=== PATIENT | female | born 1995 | race African-American/Black ===

== ENCOUNTER 2016-07-25 19:14 | Emergency (ER) | payer MEDICAID, OTHER ==
[~2016-07-25] VITALS: Ht 167.6 cm; Wt 90.5 kg
[~2016-07-25 19:14] MED LIST: LORT5TAB PO; NORE1TAB58 PO; PROM25TA5 PO; Z.0.NO CURRENT MEDS
[2016-07-25 19:16] VITALS: BP 137/79; PULSE 98; RESP 16; TEMP 98
[2016-07-26 00:45] VITALS: BP 124/70; PULSE 90; RESP 16; TEMP 98
[2016-07-26 02:13] VITALS: BP 124/70; PULSE 90; RESP 16; TEMP 98; O2SAT 96
[2016-07-26] MEDS ORDERED: SODIUM CHLOR 0.9% 1000 ML INJ 1,000 ML IV ONE (04:15)
[2016-07-26] MEDS ORDERED: METOCLOPRAMIDE INJ 10 MG in SODIUM CHLORIDE 0.9% INJ 50 ML IV ONE (04:15)
[2016-07-26 04:43] VITALS: BP 130/70; PULSE 87; RESP 16; TEMP 98.7; O2SAT 100
[2016-07-26 05:11] LABS: AUTOMATED NEUTROPHIL # 4.2 TH/MM3 (1.8-7.7); BASOPHIL % 0.5 % (0.0-2.0); EOSINOPHIL # 0.2 TH/MM3 (0-0.4); EOSINOPHIL % 2.1 % (0.0-4.0); HEMATOCRIT 36.4 % (35.0-46.0); HEMO FLAGS DIFF FINAL; LYMPH % 27.8 % (9.0-44.0); MEAN CELL VOLUME 86.3 FL (80.0-100.0); MEAN CORPUSCULAR HGB CONC 34.8 % (32.0-36.0); MONO % 11.9 % (0.0-8.0); NEUT % 57.7 % (16.0-70.0); PLATELET COUNT 358 TH/MM3 (150-450); RED BLOOD COUNT 4.23 MIL/MM3 (4.00-5.30); RED CELL DISTRIBUTION WIDTH 12.6 % (11.6-17.2); WHITE BLOOD COUNT 7.4 TH/MM3 (4.0-11.0)
[2016-07-26 05:13] LABS: BACTERIA, URINE RARE /hpf; BLOOD, URINE NEG (NEG); COMMENT (UR) CULT NOT INDICATED; CULTURE IF INDICATED CULT NOT INDICATED; GLUCOSE,URINE NEG (NEG); KETONE, URINE 150 mg/dL (NEG); MUCUS URINE MANY /lpf (OCC); NITRITE,URINE NEG (NEG); SQUAMOUS EPITHELIAL CELL URINE 5 /hpf (0-5); URINE COLOR YELLOW (YELLW/STRAW)
[2016-07-26 05:29] LABS: ALKALINE PHOSPHATASE 102 U/L (45-117); ALT (GPT) 36 U/L (9-42); ANION GAP 10 MEQ/L (5-15); AST (GOT) 30 U/L (16-38); BICARBONATE 23.6 MEQ/L (21.0-32.0); BLOOD UREA NITROGEN 9 MG/DL (7-18); CHLORIDE 103 MEQ/L (98-107); GLOMERULAR FILTRATION RATE 129 ML/MIN (>89); SODIUM (NA) 137 MEQ/L (136-145); TOTAL BILIRUBIN ADULT 0.9 MG/DL (0.2-1.0)
[2016-07-26 05:34] LABS: POTASSIUM 4.2 MEQ/L (3.5-5.1)
[2016-07-26] MEDS ORDERED: MACR100C2 PO (06:14)
[2016-07-26] MEDS ORDERED: REGL10TA5 PO (06:14)
--- NOTE | 2016-07-26 06:14 | PD ---
HPI Chief Complaint: GI Complaint Time Seen by Provider: 04:09 Travel History International Travel<30 days: No Contact w/Intl Traveler<30days: No Traveled to known affect area: No History of Present Illness HPI Patient is a 20 year old female, approximately 8 weeks , who comes in complaining of nausea and vomiting for the past 5 days. She says today she has not been able to keep any food or drink down. She says she has occasional cramping of her lower abdomen. She denies any leakage of fluids or vaginal bleeding. This is her first . She denies any dysuria. [facility] Past Medical History Diminished Hearing: No Immunizations Current: Yes Tetanus Vaccination: Unknown Influenza Vaccination: No ?: LMP: 8 weeks Ovarian Cysts: Yes (HAD ONE PREVIOUSLY THAT DISSOLVED IN SAME AREA) Past Surgical History Surgical History: No Previous Surgery Social History Alcohol Use: No Tobacco Use: No Substance Use: No Allergies-Medications (Allergen,Severity, Reaction): Coded Allergies: No Known Allergies (Verified , 07/25/16) Reported Meds & Prescriptions Reported Meds & Active Scripts Active Macrobid (Nitrofurantoin Monoh/Nitrofur Macro) 100 Mg Cap 100 Mg PO BID 7 Days Reglan (Metoclopramide HCl) 10 Mg Tab 10 Mg PO QID Review of Systems Except as stated in HPI: all other systems reviewed are Neg General / Constitutional: No: Fever, Chills HENT: No: Headaches Cardiovascular: No: Chest Pain or Discomfort Respiratory: No: Shortness of Breath Gastrointestinal: Positive: Nausea, Vomiting, No: Abdominal Pain Genitourinary: No: Urgency, Frequency, Dysuria, Discharge, Vaginal Bleeding Skin: No Rash, No Change in Pigmentation Neurologic: No: Weakness, Dizziness Physical Exam Narrative GENERAL: Awake and alert, in no acute distress. SKIN: Focused skin assessment warm/dry. HEAD: Atraumatic. Normocephalic. EYES: Pupils equal and round. No scleral icterus. ENT: Mucous membranes pink and moist. NECK: Trachea midline. No JVD. CARDIOVASCULAR: Regular rate and rhythm. No murmur appreciated. RESPIRATORY: No accessory muscle use. Clear to auscultation. Breath sounds equal bilaterally. GASTROINTESTINAL: Abdomen soft, non-tender, nondistended. No CVA tenderness. MUSCULOSKELETAL: No obvious deformities. No clubbing. No cyanosis. No edema. NEUROLOGICAL: Awake and alert. No obvious cranial nerve deficits. Motor grossly within normal limits. Normal speech. PSYCHIATRIC: Appropriate mood and affect; insight and judgment normal. Data Data Last Documented VS Vital Signs Date Time Temp Pulse Resp B/P Pulse Ox O2 Delivery O2 Flow Rate FiO2 07/26/16 06:44 98.6 88 16 98 07/26/16 04:43 130/70 Room Air Orders Ed Urine Pregnancytest Poc (07/26/16 04:13) Ed Poc Ultrasound (07/26/16 ) Complete Blood Count With Diff (07/26/16 04:13) Comprehensive Metabolic Panel (07/26/16 04:13) Urinalysis - C+S If Indicated (07/26/16 04:13) Sodium Chlor 0.9% 1000 Ml Inj (Ns 1000 M (07/26/16 04:15) Metoclopramide Inj (Reglan Inj) (07/26/16 04:15) Labs Laboratory Tests Test 07/26/16 05:05 White Blood Count 7.4 TH/MM3 Red Blood Count 4.23 MIL/MM3 Hemoglobin 12.7 GM/DL Hematocrit 36.4 % Mean Corpuscular Volume 86.3 FL Mean Corpuscular Hemoglobin 30.0 PG Mean Corpuscular Hemoglobin 34.8 % Concent Red Cell Distribution Width 12.6 % Platelet Count 358 TH/MM3 Mean Platelet Volume 7.8 FL Neutrophils (%) (Auto) 57.7 % Lymphocytes (%) (Auto) 27.8 % Monocytes (%) (Auto) 11.9 % Eosinophils (%) (Auto) 2.1 % Basophils (%) (Auto) 0.5 % Neutrophils # (Auto) 4.2 TH/MM3 Lymphocytes # (Auto) 2.0 TH/MM3 Monocytes # (Auto) 0.9 TH/MM3 Eosinophils # (Auto) 0.2 TH/MM3 Basophils # (Auto) 0.0 TH/MM3 CBC Comment DIFF FINAL Differential Comment Urine Color YELLOW Urine Turbidity HAZY Urine pH 6.0 Urine Specific [place] 1.034 Urine Protein 30 mg/dL Urine Glucose (UA) NEG mg/dL Urine Ketones 150 mg/dL Urine Occult Blood NEG Urine Nitrite NEG Urine Bilirubin NEG Urine Urobilinogen LESS THAN 2.0 MG/DL Urine Leukocyte Esterase NEG Urine RBC LESS THAN 1 /hpf Urine WBC 2 /hpf Urine Squamous Epithelial 5 /hpf Cells Urine Bacteria RARE /hpf Urine Mucus MANY /lpf Microscopic Urinalysis Comment CULT NOT INDICATED Sodium Level 137 MEQ/L Potassium Level 4.2 MEQ/L Chloride Level 103 MEQ/L Carbon Dioxide Level 23.6 MEQ/L Anion Gap 10 MEQ/L Blood Urea Nitrogen 9 MG/DL Creatinine 0.70 MG/DL Estimat Glomerular Filtration 129 ML/MIN Rate Random Glucose 76 MG/DL Calcium Level 9.2 MG/DL Total Bilirubin 0.9 MG/DL Aspartate Amino Transf 30 U/L (AST/SGOT) Alanine Aminotransferase 36 U/L (ALT/SGPT) Alkaline Phosphatase 102 U/L Total Protein 8.1 GM/DL Albumin 3.8 GM/DL [facility] Medical Decision Making Medical Screen Exam Complete: Yes Emergency Medical Condition: Yes Differential Diagnosis UTI vs pyelonephritis vs hyperemesis gravidarum Narrative Course Patient is a 20 year old female, 8 weeks , who comes in complaining of nausea and vomiting. Exam shows no abdominal tenderness. IV established, labs sent. Urine is positive for ketones and bacteria. Given IVF and Reglan. Bedside sono performed, confirms IUP with heartbeat. Patient feels better after medication. Able to drink without vomiting. Will be discharged with prescriptions for Reglan and Macrobid. Advised to follow up with her OB. Advised to return to the ED as needed for any worsening symptoms. Procedures Procedure Narrative Emergency Department Pelvic ultrasound was performed with patient consent. The curvilinear probe was used in the transverse and sagittal views within the suprapubic region revealing single intrauterine . heart rate was 152. [place]-rump length puts the at 7 weeks and 5 days. Diagnosis Primary Impression: Hyperemesis gravidarum Additional Impression: Bacteria in urine Patient Instructions: General Instructions, Hyperemesis Gravidarum (ED) Additional Instructions: Follow up with your OB. Return to the ED as needed for any worsening symptoms. Scripts Nitrofurantoin Monohydrate Macrocrystals (Macrobid)100 Mg [id number] Mg PO BID 7 Days Ref 0 Prov:Kemi Padilla MD 07/26/16 Metoclopramide (Reglan)10 Mg Tab10 Mg PO QID #12 TAB Ref 0 Prov:Kemi Padilla MD 07/26/16 Disposition: 01 DISCHARGE HOME Condition: Stable Kemi Padilla MD Jul 26, 2016 06:14
[2016-07-26 06:44] VITALS: TEMP 98.6
== END 2016-07-26 06:43 | disposition home or self-care (01) ==
LOC: NEPE 19:14
DX: O21.0 Mild hyperemesis gravidarum (principal); O23.91 Unspecified genitourinary tract infection in pregnancy, first trimester; Z3A.08 8 weeks gestation of pregnancy
CPT/HCPCS: 80053; 81001; 85025; 96374; 99284; J2765; J7030

== ENCOUNTER 2017-02-15 11:41 | Emergency (ER) | payer MEDICAID ==
[~2017-02-15 11:41] MED LIST changes: -LORT5TAB PO; +MACR100C2 PO; -NORE1TAB58 PO; -PROM25TA5 PO; +REGL10TA5 PO; -Z.0.NO CURRENT MEDS
[2017-02-15 11:54] VITALS: RESP 18
[2017-02-15 12:06] VITALS: BP 120/70; PULSE 112
[2017-02-15 12:15] VITALS: TEMP 98.6
--- NOTE | 2017-02-15 13:19 | PD ---
HPI Date Seen: Feb 15, 2017 Time Seen: 12:40 Travel History International Travel<30 Days: No Contact w/Intl Traveler<30Days: No History of Present Illness HPI 21 yo at 36/5 weeks gestation presenting with sharp/stabbing lower abdominal pain localized to RLQ. Intermittent pain, not severe. A/w back pain. No fever/chills, dysuria, diarrhea. No vaginal bleeding or leakage of fluid. Endorses movement. History Past Medical History Medical History: Denies Significant Hx Obstetric History Obstetric History Past Surgical History Surgical History: No Previous Surgery Family History Family History: Negative Social History Alcohol Use: No Tobacco Use: No Substance Abuse: No Allergies-Medications (Allergen,Severity, Reaction): Coded Allergies: No Known Allergies (Verified , 07/25/16) Home Meds Active Scripts Nitrofurantoin Monohydrate Macrocrystals (Macrobid) 100 Mg Cap, 100 MG PO BID for Infection for 7 Days, CAP 0 Refills Prov:Kemi Padilla MD 07/26/16 Metoclopramide (Reglan) 10 Mg Tab, 10 MG PO QID for Nausea, #12 TAB 0 Refills Prov:Kemi Padilla MD 07/26/16 Review of Systems Except as stated in HPI: all other systems reviewed are Neg Physical Exam Vital Signs Date Time Temp Pulse Resp B/P (MAP) Pulse Ox O2 Delivery O2 Flow Rate FiO2 02/15/17 12:15 98.6 02/15/17 12:06 112 120/70 (87) 02/15/17 11:54 18 Narrative GENERAL: Well-nourished, well-developed patient. SKIN: Warm and dry. HEAD: Normocephalic and atraumatic. EYES: No scleral icterus. No injection or drainage. ENT: No nasal drainage noted. Mucous membranes pink. Airway patent. NECK: Supple, trachea midline. No JVD. CARDIOVASCULAR: Regular rate and rhythm without murmurs, gallops, or rubs. RESPIRATORY: Breath sounds equal bilaterally. No accessory muscle use ABDOMEN/GI: Abdomen soft, non-tender, bowel sounds present, no rebound, no guarding GENITOURINARY: External Genitalia: intact and normal in appearance Cervix: posterior Dilatation: 0-1 cm Effacement: 30-40% Station: -3 Presentation: Vertex Membranes: intact Uterine Contractions: Regular every 5 minutes FHT's: Category: 1 Baseline: 130 Reactive: Y Variability: moderate Decels: N EXTREMITIES: No cyanosis or edema. BACK: Nontender without obvious deformity NEUROLOGICAL: Awake and alert. Motor and sensory grossly within normal limits. Normal speech. Data Data Vital Signs Reviewed: Yes Orders Orders Vital Signs (Adult) .ON ADMISSION (02/15/17 11:52) ^ Labor Status (02/15/17 11:52) ^ Non Stress Test (02/15/17 11:52) ^ Hydration (02/15/17 11:52) Us Abdomen Lower Limited (02/15/17 ) Group B Strep: Negative MDM Medical Record Reviewed: Yes Narrative Course / MDM 21 yo at 36/5 weeks with lower abdominal pain #1 IUP - cat 1 tracing, reassuring' #2 Abdominal pain - likely [place] versus early labor. Cervix closed and high. Urine dipstick negative for nitrite and leuk esterase. No evidence of appendicitis on ultrasound and exam not suggestive. Counselled on active labor signs. Advised to keep appts with Dr. Sharif as scheduled. dw Dr. Perez Diagnosis Diagnosis: Primary Impression: [place] contractions Disposition: DISCHARGE HOME Condition: Good Andrew Bustos MD R2 Feb 15, 2017 13:19
--- NOTE | 2017-02-15 14:05 | RADRPT ---
EXAM DATE/TIME: 02/15/2017 12:49 [facility] COMPARISON: CT ABDOMEN & PELVIS W CONTRAST, April 01, 2009, 19:13. INDICATIONS : Right lower quadrant pain, appendicitis. MEDICAL HISTORY : 37 weeks . SURGICAL HISTORY : Cyst removed from finger. ENCOUNTER: Initial ACUITY: 1 day PAIN SCORE: 3/10 LOCATION: Right lower quadrant AREA EVALUATED: Lower quadrants. FINDINGS: Imaging of the abdomen and pelvis was performed to evaluate for ascites for possible paracentesis. CONCLUSION: I do not see appendicitis by ultrasound. Appendix is noted to be deep in the pelvis on CT scan from 04/01/2009. Cricket Lopez MD FACR on February 15, 2017 at 13:07 Board Certified Radiologist. This report was verified electronically.
== END 2017-02-15 13:52 | disposition home or self-care (01) ==
LOC: HOBED 11:41
DX: O47.03 False labor before 37 completed weeks of gestation, third trimester (principal); R10.31 Right lower quadrant pain; Z3A.36 36 weeks gestation of pregnancy
CPT/HCPCS: 59025; 76705

== ENCOUNTER 2017-03-03 12:24 | Emergency (ER) | payer MEDICAID ==
[2017-03-03] MEDS ORDERED: ONDANSETRON ODT 4 MG TAB PO ONE (14:00)
--- NOTE | 2017-03-03 15:19 | PD ---
HPI Chief Complaint 39 weeks / nausea and vomiting 2 days Back pain Date Seen: Mar 03, 2017 Time Seen: 15:00 Travel History International Travel<30 Days: No Contact w/Intl Traveler<30Days: No Known Affected Area: No History of Present Illness HPI 21 yo at 39 weeks Pt presents with 2 days h/o nausea and vomiting. Had similar episode 2 weeks ago, and was seen at ED here and sent home. Symptoms resolved spontaneously.No headache or vision changes. Active movements. No vaginal bleeding. pt was seen in the office yesterday PM, and was 2cm dilated . Weeks Gestation: 39 Para: 0 : 1 History Past Medical History Medical History: Denies Significant Hx Past Surgical History Surgical History: No Previous Surgery Family History Family History: Negative Social History Alcohol Use: No Tobacco Use: No Substance Abuse: No Allergies-Medications (Allergen,Severity, Reaction): Coded Allergies: No Known Allergies (Verified Allergy, Unknown, 03/03/17) Home Meds Active Scripts Nitrofurantoin Monohydrate Macrocrystals (Macrobid) 100 Mg Cap, 100 MG PO BID for Infection for 7 Days, CAP 0 Refills Prov:Kemi Padilla MD 07/26/16 Metoclopramide (Reglan) 10 Mg Tab, 10 MG PO QID for Nausea, #12 TAB 0 Refills Prov:Kemi Padilla MD 07/26/16 Review of Systems Except as stated in HPI: all other systems reviewed are Neg Physical Exam Narrative GENERAL: Well-nourished, well-developed patient. SKIN: Warm and dry. HEAD: Normocephalic and atraumatic. EYES: No scleral icterus. No injection or drainage. ENT: No nasal drainage noted. Mucous membranes pink. Airway patent. NECK: Supple, trachea midline. No JVD. CARDIOVASCULAR: Regular rate and rhythm without murmurs, gallops, or rubs. RESPIRATORY: Breath sounds equal bilaterally. No accessory muscle use. BREASTS: Bilateral exam showed no masses , no retractions, no nipple discharge. ABDOMEN/GI: Abdomen soft, non-tender, bowel sounds present, no rebound, no guarding Gravid to [39] weeks size Fundal Height: [-] GENITOURINARY: External Genitalia: intact and normal in appearance BUS glands: [-] Cervix: [-] Dilatation: [-] Effacement: [-] Station: [-] Presentation: [-] Membranes: [intact or ruptured] Uterine Contractions: [occasional] FHT's: Category: [cat 1] Baseline: [130s] Variability: [moderate] Decels: [none] EXTREMITIES: No cyanosis or edema. BACK: Nontender without obvious deformity. No CVA tenderness. NEUROLOGICAL: Awake and alert. Motor and sensory grossly within normal limits. Five out of 5 muscle strength in all muscle groups. Normal speech. Data Data Vital Signs Reviewed: Yes Orders Orders Ondansetron Odt (Zofran Odt) (03/03/17 14:00) MDM Plan Cervix unchanged from office visit. Nausea and vomiting improved with Zofran Discharge home on ODT Zofran.. Diagnosis Diagnosis: Primary Impression: 39 weeks gestation of Additional Impressions: Nausea & vomiting Back pain affecting Disposition: 01 DISCHARGE HOME Condition: Stable Contreras Spencer MD Mar 03, 2017 15:19
--- NOTE | 2017-03-03 16:02 | PD ---
HPI Chief Complaint nausea and vomiting 2 days back pain Date Seen: Mar 03, 2017 Time Seen: 13:00 Travel History International Travel<30 Days: No Contact w/Intl Traveler<30Days: No Known Affected Area: No History of Present Illness HPI Pt is a 21 [address] at [address] [facility] 03-10-2017, care at [facility]. Reports nausea and vomiting since yesterday morning. had similar episode 2 weeks and was suzanne here and discharged home. Active movements, no vaginal bleeding. History Past Medical History Medical History: Denies Significant Hx Past Surgical History Surgical History: No Previous Surgery Family History Family History: Negative Social History Alcohol Use: No Tobacco Use: No Substance Abuse: No Allergies-Medications (Allergen,Severity, Reaction): Coded Allergies: No Known Allergies (Verified Allergy, Unknown, 03/03/17) Home Meds Active Scripts Nitrofurantoin Monohydrate Macrocrystals (Macrobid) 100 Mg Cap, 100 MG PO BID for Infection for 7 Days, CAP 0 Refills Prov:Kemi Padilla MD 07/26/16 Metoclopramide (Reglan) 10 Mg Tab, 10 MG PO QID for Nausea, #12 TAB 0 Refills Prov:Kemi Padilla MD 07/26/16 Review of Systems Except as stated in HPI: all other systems reviewed are Neg Physical Exam Narrative GENERAL: Well-nourished, well-developed patient. SKIN: Warm and dry. HEAD: Normocephalic and atraumatic. EYES: No scleral icterus. No injection or drainage. ENT: No nasal drainage noted. Mucous membranes pink. Airway patent. NECK: Supple, trachea midline. No JVD. CARDIOVASCULAR: Regular rate and rhythm without murmurs, gallops, or rubs. RESPIRATORY: Breath sounds equal bilaterally. No accessory muscle use. BREASTS: Bilateral exam showed no masses , no retractions, no nipple discharge. ABDOMEN/GI: Abdomen soft, non-tender, bowel sounds present, no rebound, no guarding Gravid to 39 weeks size GENITOURINARY: External Genitalia: intact and normal in appearance BUS glands: [-] Cervix: [soft] Dilatation: [2cm, posterior,high] Uterine Contractions: [occasional] FHT's: Category: [-] Baseline: [-] Reactive: [-] Variability: [-] Decels: [-] EXTREMITIES: No cyanosis or edema. BACK: Nontender without obvious deformity. No CVA tenderness. NEUROLOGICAL: Awake and alert. Motor and sensory grossly within normal limits. Five out of 5 muscle strength in all muscle groups. Normal speech. Data Data Vital Signs Reviewed: Yes Orders Orders Ondansetron Odt (Zofran Odt) (03/03/17 14:00) MDM Plan 21 yo at 39 weeks. Presented with nausea and vomiting that resolved after Zofran. Cervix unchanged from office exam yesterday. Plan is to discharge home, with ODT Zofran PRN. Diagnosis Diagnosis: Primary Impression: 39 weeks gestation of Additional Impressions: Nausea & vomiting Back pain affecting Disposition: 01 DISCHARGE HOME Condition: Good Contreras Spencer MD Mar 03, 2017 16:02
== END 2017-03-03 16:00 | disposition home or self-care (01) ==
LOC: HOBED 12:24
DX: O21.9 Vomiting of pregnancy, unspecified (principal); O26.893 Other specified pregnancy related conditions, third trimester; M54.9 Dorsalgia, unspecified; Z3A.39 39 weeks gestation of pregnancy
CPT/HCPCS: 59025

== ENCOUNTER 2017-03-12 20:05 | Inpatient (IN) | payer MEDICAID ==
[~2017-03-12] VITALS: Ht 167.6 cm; Wt 105.2 kg
[2017-03-12 20:25] VITALS: BP 135/81; PULSE 96
[2017-03-12 20:43] LABS: AUTOMATED NEUTROPHIL # 4.5 TH/MM3 (1.8-7.7); BASOPHIL % 0.3 % (0.0-2.0); EOSINOPHIL # 0.1 TH/MM3 (0-0.4); EOSINOPHIL % 1.6 % (0.0-4.0); HEMATOCRIT 34.9 % (35.0-46.0); HEMO FLAGS DIFF FINAL; LYMPH % 27.9 % (9.0-44.0); LYMPHOCYTE # 2.3 TH/MM3 (1.0-4.8); MEAN CELL VOLUME 85.2 FL (80.0-100.0); MEAN CORPUSCULAR HEMOGLOBIN 28.6 PG (27.0-34.0); MEAN CORPUSCULAR HGB CONC 33.6 % (32.0-36.0); MONO % 15.1 % (0.0-8.0); NEUT % 55.1 % (16.0-70.0); PLATELET COUNT 304 TH/MM3 (150-450); RED BLOOD COUNT 4.09 MIL/MM3 (4.00-5.30); RED CELL DISTRIBUTION WIDTH 15.4 % (11.6-17.2); WHITE BLOOD COUNT 8.1 TH/MM3 (4.0-11.0)
[2017-03-12 20:55] VITALS: BP 132/80; PULSE 92
[2017-03-12 21:00] VITALS: RESP 18
[2017-03-12] MEDS ORDERED: ONDANSETRON HCL 4 MG/2 ML VIAL IV PUSH PRN (21:00)
[2017-03-12] MEDS ORDERED: NS 500 ML BOLUS IV PRN (21:00)
[2017-03-12] MEDS ORDERED: LACTATED RINGER'S 1000 ML BOLUS IV PRN (21:00)
[2017-03-12] MEDS ORDERED: OXYTOCIN 30 UNITS 500ML PREMIX IV ONE (21:00)
[2017-03-12] MEDS ORDERED: ZOLPIDEM TARTRATE 10 MG TAB PO PRN (21:00)
[2017-03-12] MEDS ORDERED: LIDOCAINE HCL 1% 50 ML VIAL INFIL PRN (21:00)
[2017-03-12] MEDS ORDERED: MINERAL OIL 10 ML VIAL TOPICAL PRN (21:00)
[2017-03-12] MEDS ORDERED: NS 1000 ML IV PRN (21:00)
[2017-03-12] MEDS ORDERED: CITRIC ACID-SODIUM CITRATE LIQ 30 ML UDC PO SCH (21:00)
[2017-03-12] MEDS ORDERED: LIDOCAINE HCL 1% 50 ML VIAL I-DERMAL PRN (21:00)
[2017-03-12 21:05] LABS: BACTERIA, URINE RARE /hpf; BLOOD, URINE MOD (NEG); GLUCOSE,URINE NEG (NEG); KETONE, URINE NEG (NEG); MUCUS URINE FEW /lpf (OCC); NITRITE,URINE NEG (NEG); PH, URINE 6.5 (5.0-8.5); SQUAMOUS EPITHELIAL CELL URINE 9 /hpf (0-5); URINE COLOR YELLOW (YELLW/STRAW)
[2017-03-12 21:07] LABS: COMMENT (UR) CULT NOT INDICATED; CULTURE IF INDICATED CULT NOT INDICATED
[2017-03-12] MEDS: LACTATED RINGER'S 1000 ML IV SCH (21:38)
[2017-03-12] MEDS ORDERED: DINOPROSTONE 10 MG INSERT-LEAVE FOR 12 HOURS VAGINAL ONE (22:00)
[2017-03-13] VITALS (41 sets, daily range): BP systolic 101–145; BP diastolic 48–109; PULSE 78–127; RESP 18–20; TEMP 97.9–98.9; O2SAT 98
[2017-03-13] MEDS ORDERED: fentaNYL 2MCG-BUPIV 0.125% INJ 100 ML ONE (04:02)
[2017-03-13] MEDS: LACTATED RINGER'S 1000 ML IV SCH ×3 (04:50→22:19)
[2017-03-13] MEDS ORDERED: NO SYSTEM NARCOTICS PRN (05:00)
[2017-03-13] MEDS ORDERED: ePHEDrine/NS 25 MG/5 ML SYR IV PUSH PRN (05:00)
[2017-03-13] MEDS ORDERED: DO NOT ADMINISTER ANTICOAGULANTS PRN (05:00)
[2017-03-13] MEDS ORDERED: fentaNYL 2MCG-BUPIV 0.125% 100 ML EPIDURAL SCH (05:00)
[2017-03-13] MEDS ORDERED: OXYTOCIN 30 UNITS-500ML PREMIX 500 ML ONE (06:44)
--- NOTE | 2017-03-13 07:19 | PD.LABORPN ---
Subjective Subjective 21 yo bf G1 at 40 3/7 weeks brought in for cervidil last night and C/C/-1 at 7: 00am. Has epidural and is comfortable. PNC with [facility] and unremarkable. No PTL, GDM, HTN disease. one hour elevated but 3 hour GTT. Objective Vital Signs Vital Signs Date Time Temp Pulse Resp B/P (MAP) Pulse Ox O2 Delivery O2 Flow Rate FiO2 03/13/17 06:36 103 130/80 (97) 03/13/17 06:31 103 03/13/17 06:30 98.4 03/13/17 06:30 18 03/13/17 06:16 95 130/59 (82) 03/13/17 06:05 18 03/13/17 06:01 92 101/80 (87) 03/13/17 06:00 18 03/13/17 05:46 84 125/62 (83) 03/13/17 05:31 87 122/61 (81) 03/13/17 05:20 98.4 18 03/13/17 05:16 78 123/92 (102) 03/13/17 05:04 20 03/13/17 05:01 88 124/63 (83) 03/13/17 04:46 95 117/73 (88) 03/13/17 04:45 18 03/13/17 04:35 92 03/13/17 04:32 97 112/56 (74) 03/13/17 04:25 100 03/13/17 04:20 97 03/13/17 04:19 144/109 (121) 03/13/17 04:15 95 03/13/17 04:12 109 145/98 (114) 03/13/17 04:11 95 125/48 (73) 03/13/17 04:10 95 03/13/17 04:07 104 133/73 (93) 03/13/17 04:05 97 03/13/17 04:04 98 133/72 (92) 03/13/17 03:38 18 03/13/17 00:45 98.1 03/13/17 00:45 100 120/88 (99) 03/13/17 00:44 18 Objective c/c/-1 ROP but feels like it will rotate. EFW 7 1/2 pelvis clinically adequate strip category 1 UCs not traceble but progress excellent Weeks Gestation: 40 Gest Age Assessed Date: Mar 13, 2017 Gest Age Assessed Time: 07:16 Pt started active labor?: Yes Active labor start date: Mar 12, 2017 Active labor start time: 00:00 Medical induction of labor?: Yes Medical induction start date: Mar 12, 2017 Medical induction start time: 20:00 Artificial rupture of membrane: No Assessment/Plan Problem List: (1) Encounter for induction of labor ICD Codes: Z34.90 - Encounter for supervision of normal , unspecified , unspecified trimester (2) complicated by obesity ICD Codes: O99.210 - Obesity complicating , unspecified trimester Assessment and Plan can begin pushing or wait for spontaneous rotation and descent anticipate Alecia Deluca MD Mar 13, 2017 07:19
--- NOTE | 2017-03-13 07:45 | HHI.HP ---
HPI Chief Complaint iol at term Date Seen: Mar 10, 2017 Travel History International Travel<30 Days: No Contact w/Intl Traveler<30Days: No Known Affected Area: No History of Present Illness HPI 21 yo G1 with iup at 40w3d here for iol at term. care c/b obesity, normal HgA1c, Abn 1 hour with normal 3 hr GTT. Growth u/s in third trimester show LGA. Last u/s at 37 weeks EFW 72% (6 lb 14 oz). She reports good fm, neg ctx/vb/lof. Weeks Gestation: 39 : 1 History Past Medical History Medical History: Denies Significant Hx Obstetric History Obstetric History G1 Past Surgical History Narrative Surgical cyst removal from finger Family History Family History: Negative Social History Alcohol Use: No Tobacco Use: No Substance Abuse: No Allergies-Medications (Allergen,Severity, Reaction): Coded Allergies: No Known Allergies (Verified Allergy, Unknown, 03/03/17) Home Meds Active Scripts Nitrofurantoin Monohydrate Macrocrystals (Macrobid) 100 Mg Cap, 100 MG PO BID for Infection for 7 Days, CAP 0 Refills Prov:Kemi Padilla MD 07/26/16 Metoclopramide (Reglan) 10 Mg Tab, 10 MG PO QID for Nausea, #12 TAB 0 Refills Prov:Kemi Padilla MD 07/26/16 Review of Systems General / Constitutional: No: Fever, Weight Gain, Chills, Other Eyes: No: Diploplia, Blurred Vision, Visual changes, Pain, Photophobia HENT: No: Headaches, Vertigo, Lightheadedness Cardiovascular: No: Irregular Rhythm, Chest Pain or Discomfort, Palpitations, Tachycardia, Syncope, Varicosities, Edema, Cyanosis Respiratory: No: Cough, Short of Breath, Other Gastrointestinal: No: Nausea, Vomiting, Diarrhea Genitourinary: No: Decreased Urinary Output, Oliguria Musculoskeletal: No: Limited ROM, Weakness, Cramping, Edema, Pain Skin: No Rash, No Itching, No Dryness, No Lumps, No Change in Pigmentation, No Change in Nails, No Alopecia, No Lesions Neurologic: No: Weakness, Dizziness, Syncope, Focal Abnormalities, Coordination Problem, Headache, Slurred Speech, Seizures Psychiatric: No: Depression, Suicidal Ideations, Homicidal Ideation Endocrine: No: Heat Intolerance, Cold Intolerance, Polydipsia, Polyuria, Other Physical Exam Vital Signs Date Time Temp Pulse Resp B/P (MAP) Pulse Ox O2 Delivery O2 Flow Rate FiO2 03/13/17 07:01 95 133/71 (91) 03/13/17 06:36 103 130/80 (97) 03/13/17 06:31 103 03/13/17 06:30 98.4 03/13/17 06:30 18 03/13/17 06:16 95 130/59 (82) 03/13/17 06:05 18 03/13/17 06:01 92 101/80 (87) 03/13/17 06:00 18 03/13/17 05:46 84 125/62 (83) 03/13/17 05:31 87 122/61 (81) 03/13/17 05:20 98.4 18 03/13/17 05:16 78 123/92 (102) 03/13/17 05:04 20 03/13/17 05:01 88 124/63 (83) 03/13/17 04:46 95 117/73 (88) 03/13/17 04:45 18 03/13/17 04:35 92 03/13/17 04:32 97 112/56 (74) 03/13/17 04:25 100 03/13/17 04:20 97 03/13/17 04:19 144/109 (121) 03/13/17 04:15 95 03/13/17 04:12 109 145/98 (114) 03/13/17 04:11 95 125/48 (73) 03/13/17 04:10 95 03/13/17 04:07 104 133/73 (93) 03/13/17 04:05 97 03/13/17 04:04 98 133/72 (92) 03/13/17 03:38 18 03/13/17 00:45 98.1 03/13/17 00:45 100 120/88 (99) 03/13/17 00:44 18 03/12/17 21:00 18 03/12/17 20:55 92 132/80 (97) 03/12/17 20:25 96 135/81 (99) Narrative GENERAL: Well-nourished, well-developed patient. SKIN: Warm and dry. HEAD: Normocephalic and atraumatic. EYES: No scleral icterus. No injection or drainage. ENT: No nasal drainage noted. Mucous membranes pink. Airway patent. NECK: Supple, trachea midline. No JVD. CARDIOVASCULAR: Regular rate and rhythm without murmurs, gallops, or rubs. RESPIRATORY: Breath sounds equal bilaterally. No accessory muscle use. ABDOMEN/GI: Abdomen soft, non-tender, bowel sounds present, no rebound, no guarding Gravid to [-] weeks size Fundal Height: [-] GENITOURINARY: External Genitalia: intact and normal in appearance BUS glands: [-] Cervix: 05/20/high, posterior, soft Presentation: ceph Membranes: [intact Uterine Contractions: [-] FHT's: Category:I EXTREMITIES: No cyanosis or edema. BACK: Nontender without obvious deformity. No CVA tenderness. NEUROLOGICAL: Awake and alert. Motor and sensory grossly within normal limits. Five out of 5 muscle strength in all muscle groups. Normal speech. Caprini VTE Risk Assessment Caprini VTE Risk Assessment: No/Low Risk (score <= 1) Caprini Risk Assessment Model Point Value = 1 Point Value = 2 Point Value = 3 Point Value = 5 Age 41-60 Minor surgery BMI > 25 kg/m2 Swollen legs Varicose veins or History of unexplained or recurrent spontaneous Oral contraceptives or hormone replacement Sepsis (< 1 month) Serious lung disease, including pneumonia (< 1 month) Abnormal pulmonary function Acute myocardial infarction Congestive heart failure (< 1 month) History of inflammatory bowel disease Medical patient at bed rest Age 61-74 Arthroscopic surgery Major open surgery (> 45 min) Laparoscopic surgery (> 45 min) Malignancy Confined to bed (> 72 hours) Immobilizing plaster cast Central venous access Age >= 75 History of VTE Family history of VTE Factor V Leiden Prothrombin [id number] Lupus anticoagulant Anticardiolipin antibodies Elevated serum homocysteine Heparin-induced thrombocytopenia Other congenital or acquired thrombophilia Stroke (< 1 month) Elective arthroplasty Hip, pelvis, or leg fracture Acute spinal cord injury (< 1 month) Prophylaxis Regimen Total Risk Factor Score Risk Level Prophylaxis Regimen 0-1 Low Early ambulation 2 Moderate Order ONE of the following: *Sequential Compression Device (SCD) *Heparin 5000 units SQ BID 3-4 Higher Order ONE of the following medications: *Heparin 5000 units SQ TID *Enoxaparin/Lovenox 40 mg SQ daily (WT < 150 kg, CrCl > 30 mL/min) *Enoxaparin/Lovenox 30 mg SQ daily (WT < 150 kg, CrCl > 10-29 mL/min) *Enoxaparin/Lovenox 30 mg SQ BID (WT < 150 kg, CrCl > 30 mL/min) AND/OR *Sequential Compression Device (SCD) 5 or more Highest Order ONE of the following medications: *Heparin 5000 units SQ TID (Preferred with Epidurals) *Enoxaparin/Lovenox 40 mg SQ daily (WT < 150 kg, CrCl > 30 mL/min) *Enoxaparin/Lovenox 30 mg SQ daily (WT < 150 kg, CrCl > 10-29 mL/min) *Enoxaparin/Lovenox 30 mg SQ BID (WT < 150 kg, CrCl > 30 mL/min) AND *Sequential Compression Device (SCD) Data Data Vital Signs Reviewed: Yes Orders Orders Admit To Inpatient (03/12/17 ) Code Status (03/12/17 20:32) Vital Signs (Adult) .Per protocol (03/12/17 20:32) Activity Oob Ad Tiana (03/12/17 20:32) Heart (03/12/17 20:32) Amnioinfusion (03/12/17 20:32) Urinary Catheter Management .ONCE (03/12/17 20:32) Diet Liquid (03/12/17 Dinner) Complete Blood Count With Diff (03/12/17 20:32) Hold Clot (03/12/17 20:32) Abo/Rh Blood Type (03/12/17 20:32) Urinalysis - C+S If Indicated (03/12/17 20:32) Drug Screen, Random Urine (03/12/17 20:32) Resp Oxygen Non Rebreathe Mask (03/12/17 ) ^ Epidural / Intrathecal Infus (03/12/17 20:32) Lactated Ringer's 1000 Ml Inj (Lr 1000 M (03/12/17 21:00) Lactated Ringer's 1000 Ml Inj (Lr 1000 M (03/12/17 21:00) Sodium Chlorid 0.9% 500 Ml Inj (Ns 500 M (03/12/17 21:00) Sodium Chlor 0.9% 1000 Ml Inj (Ns 1000 M (03/12/17 21:00) Zolpidem (Ambien) (03/12/17 21:00) Lidocaine 1% Inj (50 Ml) (Xylocaine 1% I (03/12/17 21:00) Citric Acid-Sodium Citrate Liq (Bicitra (03/12/17 21:00) Ondansetron Inj (Zofran Inj) (03/12/17 21:00) Fentanyl Inj (Fentanyl Inj) (03/12/17 21:00) Fentanyl Inj (Fentanyl Inj) (03/12/17 21:00) Oxytocin 30 Units-500ml Premix (Pitocin (03/12/17 21:00) Lidocaine 1% Inj (50 Ml) (Xylocaine 1% I (03/12/17 21:00) Light Mineral Oil (Muri-Lube Oil) (03/12/17 21:00) Admit To Inpatient (03/12/17 ) Diet Regular Basic (03/12/17 Dinner) Diet Liquid (03/13/17 Breakfast) ^ Labor Induction (03/12/17 21:16) ^ Vaginal Insert (03/12/17 21:16) ^ Vaginal Lavage (03/12/17 21:16) Heart (03/12/17 21:16) Pneumococcal-23 Polyvalent Inj (Pneumova (03/13/17 10:00) Dinoprostone Vag Insert (Cervidil Vag In (03/12/17 22:00) Influenza (Quad) Vaccine Inj (Flu (Quadr (03/13/17 10:00) Fentanyl 2mcg-Bupiv 0.125% Inj (Fentanyl (03/13/17 04:02) Misc Nursing Information (03/13/17 05:00) Misc Nursing Information (03/13/17 05:00) Fentanyl Inj (Fentanyl Inj) (03/13/17 05:00) Fentanyl 2mcg-Bupiv 0.125% Inj (Fentanyl (03/13/17 05:00) Ephedrine/Ns 25 Mg/5 Ml Syr (Ephedrine/N (03/13/17 05:00) Oxytocin 30 Units-500ml Premix (Pitocin (03/13/17 06:44) Group B Strep: Negative Labs Laboratory Tests Test 03/12/17 20:22 White Blood Count 8.1 Red Blood Count 4.09 Hemoglobin 11.7 Hematocrit 34.9 Mean Corpuscular Volume 85.2 Mean Corpuscular Hemoglobin 28.6 Mean Corpuscular Hemoglobin Concent 33.6 Red Cell Distribution Width 15.4 Platelet Count 304 Mean Platelet Volume 9.2 Neutrophils (%) (Auto) 55.1 Lymphocytes (%) (Auto) 27.9 Monocytes (%) (Auto) 15.1 Eosinophils (%) (Auto) 1.6 Basophils (%) (Auto) 0.3 Neutrophils # (Auto) 4.5 Lymphocytes # (Auto) 2.3 Monocytes # (Auto) 1.2 Eosinophils # (Auto) 0.1 Basophils # (Auto) 0.0 CBC Comment DIFF FINAL Differential Comment Urine Color YELLOW Urine Turbidity HAZY Urine pH 6.5 Urine Specific [place] 1.027 Urine Protein 30 Urine Glucose (UA) NEG Urine Ketones NEG Urine Occult Blood MOD Urine Nitrite NEG Urine Bilirubin NEG Urine Urobilinogen 2.0 Urine Leukocyte Esterase NEG Urine RBC 124 Urine WBC 3 Urine Squamous Epithelial Cells 9 Urine Bacteria RARE Urine Mucus FEW Microscopic Urinalysis Comment CULT NOT INDICATED Urine Opiates Screen NEG Urine Barbiturates Screen NEG Urine Amphetamines Screen NEG Urine Benzodiazepines Screen NEG Urine Cocaine Screen NEG Urine Cannabinoids Screen NEG Assessment/Plan Problem List: (1) Encounter for induction of labor ICD Codes: Z34.90 - Encounter for supervision of normal , unspecified , unspecified trimester (2) complicated by obesity ICD Codes: O99.210 - Obesity complicating , unspecified trimester Assessment and Plan 21 yo G1 with iup at 40w3d here for iol at term, LGA 1) IOL- cervidil overnight, pit and arom. Aware of possible prolonged course, risk of cd 2) obesity, normal HgA1c, Abn 1 hour with normal 3 hr GTT. Growth u/s in third trimester show LGA. Last u/s at 37 weeks EFW 72% (6 lb 14 oz), projected weight 8-8.5 pounds now 3) GBS negative 4) Varicella Non-immune Nina Parker MD Mar 13, 2017 07:45
--- NOTE | 2017-03-13 08:27 | PD.OB.DELI ---
Weeks gestation: 39 Gest age assessed date: Mar 13, 2017 Gest age assessed time: 07:16 Pt started active labor?: Yes Active labor start date: Mar 12, 2017 Active labor start time: 00:00 Medical induction of labor?: Yes Medical induction start date: Mar 12, 2017 Medical induction start time: 20:00 Artificial rupture of membrane: No Anesthesia: Epidural Episiotomy: None Vaginal Delivery: Normal Presentation: Occiput anterior Nuchal Cord: x1 Delayed cord clamping (45 sec): Yes Infant: Male Delivery date: Mar 13, 2017 Delivery time: 08:26 One Minute : 8, 9 Weight: 8 Placenta: Spontaneous delivery Laceration: 2 deg Repair: Chromic interrupted, Vicryl interrupted Estimated blood loss: 200 Additional Information short controlled second stage with mom delivering baby to chest. Aj eval reassuring and baby to breast. Alecia Barahona MD Mar 13, 2017 08:27
[2017-03-13] MEDS ORDERED: WITCH HAZEL 50%/GLYCERIN 12.5% 40 PAD JAR TOPICAL PRN (08:30)
[2017-03-13] MEDS ORDERED: SODIUM CHLORIDE 0.9% FLUSH 10 ML FLUSH IV FLUSH PRN (08:30)
[2017-03-13] MEDS ORDERED: ZOLPIDEM TARTRATE 5 MG TAB PO PRN (08:30)
[2017-03-13] MEDS ORDERED: ONDANSETRON ODT 4 MG TAB PO PRN (08:30)
[2017-03-13] MEDS ORDERED: ALUMINUM/MAGNESIUM/SIMETH 30 ML CUP PO PRN (08:30)
[2017-03-13] MEDS ORDERED: DOCUSATE SODIUM 50 MG/SENNA 8.6 MG TAB PO PRN (08:30)
[2017-03-13] MEDS ORDERED: BENZOCAINE 20% TOPICAL SPRAY 60 ML CAN TOPICAL PRN (08:30)
[2017-03-13] MEDS ORDERED: ACETAMINOPHEN 325 MG TAB PO PRN (08:30)
[2017-03-13] MEDS ORDERED: OXYTOCIN 30 UNITS-500ML PREMIX 500 ML IV SCH (08:30)
[2017-03-13] MEDS: SODIUM CHLORIDE 0.9% FLUSH 10 ML FLUSH IV FLUSH SCH ×2 (09:00→20:39)
[2017-03-13] MEDS ORDERED: INFLUENZA VIRUS VACCINE (QUADRIVALENT) 0.5 ML SYR IM ONE (10:00)
[2017-03-13] MEDS ORDERED: PNEUMOCOCCAL POLYVALENT INJ 25 MCG/0.5 ML SYR IM ONE (10:00)
[2017-03-13] MEDS: IBUPROFEN 600 MG TAB PO PRN ×2 (11:36→19:06)
[2017-03-13] MEDS ORDERED: DIPHTH/TETANUS/ACEL PERTUSSIS (BOOSTER) 0.5 ML VIAL/PFS IM ONE (16:00)
[2017-03-13] MEDS ORDERED: MEASLES, MUMPS, RUBELLA VACCINE 0.5 ML VIAL SQ ONE (16:00)
[2017-03-14] MEDS: IBUPROFEN 600 MG TAB PO PRN (04:25)
[2017-03-14 08:30] VITALS: BP 103/58; PULSE 82; RESP 16; TEMP 97.5
--- NOTE | 2017-03-14 08:31 | HHI.OB ---
Subjective Post Day: 1 Remarks doing well plans to nurse no issues perineum a little sore from second degree tear and repair Objective Vitals/I&O Vital Signs Date Time Temp Pulse Resp B/P (MAP) Pulse Ox O2 Delivery O2 Flow Rate FiO2 03/13/17 19:35 98.9 80 20 127/84 (98) 03/13/17 11:20 97.9 98 18 145/79 (101) 98 03/13/17 09:01 90 117/58 (77) 03/13/17 08:55 18 03/13/17 08:46 122/85 (97) 03/13/17 08:35 98.5 19 03/13/17 08:31 127 120/69 (86) Objective Remarks GENERAL: Well-nourished, well-developed patient. CARDIOVASCULAR: Regular rate and rhythm without murmurs, gallops, or rubs. RESPIRATORY: Breath sounds equal bilaterally. No accessory muscle use. ABDOMEN/GI: Abdomen soft, non-tender. Fundus: Firm, non-tender at umbilicus. GENITOURINARY: Light to moderate bleeding. EXTREMITIES: No cyanosis or edema, non-tender, without signs of DVT. Medications and IVs Current Medications Medications (Trade) Dose Ordered Sig/Alivia Route Start Time Stop Time Status Last Admin Lactated Ringer's 1,000 ml @ 125 mls/hr Q8H IV 03/12/17 21:00 03/13/17 04:50 Lactated Ringer's 1,000 ml @ 3,000 mls/hr BOLUS PRN IV 03/12/17 21:00 Sodium Chloride 500 ml @ 1,000 mls/hr BOLUS PRN IV 03/12/17 21:00 Sodium Chloride 1,000 ml @ 100 mls/hr Q10H PRN IV 03/12/17 21:00 (Xylocaine 1% Inj (50 ml)) 0.1 ml UNSCH X1 PRN I-DERMAL 03/12/17 21:00 03/14/17 20:59 03/13/17 05:05 (Bicitra Liq) 30 ml STATION REPAIRER PO 03/12/17 21:00 03/15/17 20:59 (Xylocaine 1% Inj (50 ml)) 10 ml UNSCH X1 PRN INFIL 03/12/17 21:00 03/14/17 20:59 (Muri-Lube Oil) 10 ml UNSCH PRN TOPICAL 03/12/17 21:00 Fentanyl/ Bupivacaine HCl 100 ml @ 0 mls/hr TITRATE EPIDURAL 03/13/17 05:00 03/13/17 05:04 (NS Flush) 2 ml BID IV FLUSH 03/13/17 09:00 (NS Flush) 2 ml UNSCH PRN IV FLUSH 03/13/17 08:30 (Tylenol) 650 mg Q4H PRN PO 03/13/17 08:30 (Motrin) 600 mg Q6H PRN PO 03/13/17 08:30 03/14/17 04:25 (Americaine 20% Top Spr) 1 spray Q4H PRN TOPICAL 03/13/17 08:30 03/13/17 11:35 (Tucks Pads) 1 applic QID PRN TOPICAL 03/13/17 08:30 03/13/17 11:35 (Vicki-Colace) 2 tab Q12H PRN PO 03/13/17 08:30 (Ambien) 5 mg HS PRN PO 03/13/17 08:30 (Mag-Al Plus Susp Liq) 15 ml Q8H PRN PO 03/13/17 08:30 (Zofran Odt) 4 mg Q6H PRN PO 03/13/17 08:30 Assessment/Plan Problem List: (1) Encounter for induction of labor ICD Codes: Z34.90 - Encounter for supervision of normal , unspecified , unspecified trimester (2) complicated by obesity ICD Codes: O99.210 - Obesity complicating , unspecified trimester Assessment and Plan 21 yo G1 with iup at 40w3d here for iol at term, LGA 1) IOL- cervidil overnight, pit and arom. Aware of possible prolonged course, risk of cd 2) obesity, normal HgA1c, Abn 1 hour with normal 3 hr GTT. Growth u/s in third trimester show LGA. Last u/s at 37 weeks EFW 72% (6 lb 14 oz), projected weight 8-8.5 pounds now 3) GBS negative 4) Varicella Non-immune 03/14/17 PPD 1 doing well no ready for discharge plan for discharge in Alecia Lubin MD Mar 14, 2017 08:31
--- NOTE | 2017-03-14 09:00 | PD.PN.STU ---
Subjective Remarks 21 year old single black female hospital day 1 s/p vaginal delivery of term infant. Doing well. Peritoneal pain rated 3/4 which increases with quick movements. Denies feeling of increased pressure or swelling. Describes vaginal bleeding as a heavy period; improved from yesterday. Passed one large clot last night but has not noticed any since. Nursing . Has seen a employment consultant and not having any problems. Denies urinary and bowel problems. Denies nausea and vomiting. Tolerating diet. Objective Vitals Vital Signs Date Time Temp Pulse Resp B/P (MAP) Pulse Ox O2 Delivery O2 Flow Rate FiO2 03/13/17 19:35 98.9 80 20 127/84 (98) 03/13/17 11:20 97.9 98 18 145/79 (101) 98 03/13/17 09:01 90 117/58 (77) 03/13/17 08:55 18 03/13/17 08:46 122/85 (97) Result Diagram: 03/12/172021 Objective Remarks GENERAL: Well-nourished, well-developed patient. CARDIOVASCULAR: Regular rate and rhythm without murmurs, gallops, or rubs. RESPIRATORY: Breath sounds equal bilaterally. No accessory muscle use. ABDOMEN/GI: Abdomen soft, non-tender. Fundus: Firm, non-tender at umbilicus. GENITOURINARY: moderate bleeding without large clots. No purulent drainage or extensive swelling around suture site. EXTREMITIES: No cyanosis or edema, non-tender, without signs of DVT. Medications and IVs Current Medications Medications (Trade) Dose Ordered Sig/Alivia Route PRN Reason Start Time Stop Time Status Last Admin Dose Admin Lactated Ringer's 1,000 ml @ 125 mls/hr Q8H IV 03/12/17 21:00 03/13/17 04:50 Lactated Ringer's 1,000 ml @ 3,000 mls/hr BOLUS PRN IV SEE LABEL COMMENTS 03/12/17 21:00 Sodium Chloride 500 ml @ 1,000 mls/hr BOLUS PRN IV SEE LABEL COMMENTS 03/12/17 21:00 Sodium Chloride 1,000 ml @ 100 mls/hr Q10H PRN IV SEE LABEL COMMENTS 03/12/17 21:00 Lidocaine HCl (Xylocaine 1% Inj (50 ml)) 0.1 ml UNSCH X1 PRN I-DERMAL SEE LABEL COMMENTS 03/12/17 21:00 03/14/17 20:59 03/13/17 05:05 Citric Acid/ Sodium Citrate (Bicitra Liq) 30 ml SENIOR PROJECT MANAGER ENGINEERING PO 03/12/17 21:00 03/15/17 20:59 Lidocaine HCl (Xylocaine 1% Inj (50 ml)) 10 ml UNSCH X1 PRN INFIL For episiotomy repair 03/12/17 21:00 03/14/17 20:59 Mineral Oil (Muri-Lube Oil) 10 ml UNSCH PRN TOPICAL For perineal massage 03/12/17 21:00 Fentanyl/ Bupivacaine HCl 100 ml @ 0 mls/hr TITRATE EPIDURAL 03/13/17 05:00 03/13/17 05:04 Sodium Chloride (NS Flush) 2 ml BID IV FLUSH 03/13/17 09:00 Sodium Chloride (NS Flush) 2 ml UNSCH PRN IV FLUSH FLUSH AFTER USING IV ACCESS 03/13/17 08:30 Acetaminophen (Tylenol) 650 mg Q4H PRN PO PAIN SCALE 1 TO 2 03/13/17 08:30 Ibuprofen (Motrin) 600 mg Q6H PRN PO CRAMPING 03/13/17 08:30 03/14/17 04:25 Benzocaine (Americaine 20% Top Spr) 1 spray Q4H PRN TOPICAL PERINEUM DISCOMFORT 03/13/17 08:30 03/13/17 11:35 Witch Juany/ Glycerin (Tucks Pads) 1 applic QID PRN TOPICAL HEMORRHOIDS 03/13/17 08:30 03/13/17 11:35 Senna/Docusate Sodium (Vicki-Colace) 2 tab Q12H PRN PO CONSTIPATION 03/13/17 08:30 Zolpidem Tartrate (Ambien) 5 mg HS PRN PO INSOMNIA 03/13/17 08:30 Al Hydrox/Mg Hydrox/Simethicone (Mag-Al Plus Susp Liq) 15 ml Q8H PRN PO DYSPEPSIA 03/13/17 08:30 Ondansetron HCl (Zofran Odt) 4 mg Q6H PRN PO NAUSEA OR VOMITING 03/13/17 08:30 A/P Assessment and Plan 21 yo G1 female with induction of labor at 40w3d, infant measuring LGA 1. Post day 1 doing well nursing help as needed for nursing encouraged getting out of bed and walking around no signs of post depression vaginal tear healing- stool softener recommended if she feels herself straining to decrease pressure on sutures. continue Motrin 600mg Q6hr PRN for pain 2. Obesity normal HbA1c encouraged healthy diet and exercise 3. varicella non immune vaccinations updated Discharge Planning plan for discharge in morning if doing well through the rest of the day and tonight. Tasha Adams M3 Mar 14, 2017 09:00
[2017-03-14] MEDS: SODIUM CHLORIDE 0.9% FLUSH 10 ML FLUSH IV FLUSH SCH (09:31)
== END 2017-03-14 17:10 | disposition home or self-care (01) | DRG 775 ==
LOC: H2EB 20:05 → H1EA 03-13 10:31
PROVIDERS: ADMIT Obstetrics & Gynecology; ATTEND Obstetrics & Gynecology
PROC: 3E0P7VZ Introduction of Hormone into Female Reproductive, Via Natural or Artificial Opening (ICD-10-PCS; 2017-03-12)
PROC: 10E0XZZ Delivery of Products of Conception, External Approach (ICD-10-PCS; principal; 2017-03-13)
PROC: 0KQM0ZZ Repair Perineum Muscle, Open Approach (ICD-10-PCS; 2017-03-13)
PROC: 3E0R3BZ Introduction of Anesthetic Agent into Spinal Canal, Percutaneous Approach (ICD-10-PCS; 2017-03-13)
PROC: 00HU33Z Insertion of Infusion Device into Spinal Canal, Percutaneous Approach (ICD-10-PCS; 2017-03-13)
DX: O36.63X0 Maternal care for excessive fetal growth, third trimester, not applicable or unspecified (principal); E66.9 Obesity, unspecified; O99.214 Obesity complicating childbirth; Z68.37 Body mass index [BMI] 37.0-37.9, adult; O70.1 Second degree perineal laceration during delivery; Z3A.40 40 weeks gestation of pregnancy; Z37.0 Single live birth; Z23 Encounter for immunization
CPT/HCPCS: 59025; 80307; 81001; 82947; 85025; 86900; 86901; 90686; 90715; J2405; J2590; J3010; J7120; Q2038

== ENCOUNTER 2017-05-05 17:34 | Emergency (ER) | payer MEDICAID ==
[~2017-05-05] VITALS: Ht 167.6 cm; Wt 94.5 kg
[2017-05-05 17:35] VITALS: BP 135/97; PULSE 105; RESP 20; TEMP 99.1; O2SAT 100
[2017-05-05] MEDS ORDERED: LIDOCAINE VISCOUS 2% SOLN 15 ML UDC PO ONE (19:30)
[2017-05-05] MEDS ORDERED: ONDANSETRON ODT 4 MG TAB PO ONE (19:30)
[2017-05-05] MEDS ORDERED: ALUMINUM/MAGNESIUM/SIMETH 30 ML CUP PO ONE (19:30)
[2017-05-05] MEDS ORDERED: ZOFR4TAB3 SL (19:40)
[2017-05-05] MEDS ORDERED: LOMO2.5T PO (19:40)
--- NOTE | 2017-05-05 19:41 | PD ---
HPI Chief Complaint: GI Complaint Time Seen by Provider: 19:10 Travel History International Travel<30 days: No Contact w/Intl Traveler<30days: No Traveled to known affect area: No History of Present Illness HPI 21-year-old female complains of nausea vomiting diarrhea for about 2 days. She' s had no fever. She reports epigastric abdominal pain. Today the diarrhea turned green and ricardo leading to the ED visit. No blood in emesis or diarrhea. Severity moderate. No dysuria vaginal bleeding or vaginal discharge. PFSH Past Medical History Diminished Hearing: No Immunizations Current: Yes ?: Not LMP: 04/26/17 Ovarian Cysts: Yes (HAD ONE PREVIOUSLY THAT DISSOLVED IN SAME AREA) Social History Alcohol Use: No Tobacco Use: No Substance Use: No Allergies-Medications (Allergen,Severity, Reaction): Coded Allergies: No Known Allergies (Verified Allergy, Unknown, 03/03/17) Reported Meds & Prescriptions Reported Meds & Active Scripts Active Lomotil (Diphenoxylate-Atropine) 2.5-0.025 Mg Tab 1 Tab PO Q6H PRN Zofran Odt (Ondansetron Odt) 4 Mg Tab 4 Mg SL Q8HR PRN Macrobid (Nitrofurantoin Monoh/Nitrofur Macro) 100 Mg Cap 100 Mg PO BID 7 Days Reglan (Metoclopramide HCl) 10 Mg Tab 10 Mg PO QID Review of Systems Except as stated in HPI: all other systems reviewed are Neg General / Constitutional: No: Fever Physical Exam Narrative GENERAL: 21-year-old female pleasant well-nourished well-developed no acute distress SKIN: Focused skin assessment warm/dry. HEAD: Atraumatic. Normocephalic. EYES: Pupils equal and round. No scleral icterus. No injection or drainage. ENT: No nasal bleeding or discharge. Mucous membranes pink and moist. NECK: Trachea midline. No JVD. CARDIOVASCULAR: Regular rate and rhythm. No murmur appreciated. RESPIRATORY: No accessory muscle use. Clear to auscultation. Breath sounds equal bilaterally. GASTROINTESTINAL: Soft. No focus of tenderness. MUSCULOSKELETAL: No obvious deformities. No clubbing. No cyanosis. No edema. NEUROLOGICAL: Awake and alert. No obvious cranial nerve deficits. Motor grossly within normal limits. Normal speech. PSYCHIATRIC: Appropriate mood and affect; insight and judgment normal. Data Data Last Documented VS Vital Signs Date Time Temp Pulse Resp B/P (MAP) Pulse Ox O2 Delivery O2 Flow Rate FiO2 05/05/17 17:35 99.1 105 20 135/97 (110) 100 Room Air Vital signs reviewed Orders Orders Urinalysis - C+S If Indicated (05/05/17 19:30) Ondansetron Odt (Zofran Odt) (05/05/17 19:30) Oral Rehydration (05/05/17 19:30) Al-Mag Hy-Si 40-40-4 Mg/Ml Liq (Mag-Al P (05/05/17 19:30) Lidocaine 2% Viscous (Xylocaine 2% Visco (05/05/17 19:30) Urine Culture (05/05/17 20:10) Labs Laboratory Tests Test 05/05/17 20:10 Urine Color DARK-YELLOW Urine Turbidity HAZY Urine pH 5.5 Urine Specific [place] 1.025 Urine Protein 30 mg/dL Urine Glucose (UA) NEG mg/dL Urine Ketones 10 mg/dL Urine Occult Blood NEG Urine Nitrite NEG Urine Bilirubin MOD Urine Urobilinogen 2.0 MG/DL Urine Leukocyte Esterase SMALL Urine RBC 2 /hpf Urine WBC 12 /hpf Urine Squamous Epithelial Cells 24 /hpf Urine Bacteria FEW /hpf Urine Mucus MANY /lpf Microscopic Urinalysis Comment CULTURE INDICATED MDM Medical Decision Making Medical Screen Exam Complete: Yes Emergency Medical Condition: Yes Medical Record Reviewed: Yes Differential Diagnosis Constipation, Gastritis, Acute Cholecystitis, Biliary Colic, Pancreatitis, HOOK , Hepatitis, Bowel Obstruction, Cystitis, Mesenteric Ischemia, AAA, Appendicitis , Renal Stone/Hydronephrosis, GERD, perforated viscous Narrative Course Urinalysis shows no UTI Nature the complaints are fairly nonspecific and not very concerning for acute abdominal/pelvic pathology. We can send the patient home with Zofran and Lomotil. She tolerated oral hydration here without difficulty. Diagnosis Primary Impression: Nausea and vomiting Qualified Codes: R11.2 - Nausea with vomiting, unspecified Additional Impressions: Diarrhea Qualified Codes: R19.7 - Diarrhea, unspecified UTI (urinary tract infection) Qualified Codes: N30.00 - Acute cystitis without hematuria Med/Other Pt SpecificInfo: Prescription(s) given Scripts Nitrofurantoin Monohydrate Macrocrystals (Macrobid) 100 Mg Cap 100 MG PO BID for Infection for 5 Days, #10 CAP 0 Refills Prov: Silviano Pittman MD 05/05/17 Diphenoxylate-Atropine (Lomotil) 2.5-0.025 Mg Tab 1 TAB PO Q6H Y for DIARRHEA, #12 TAB 0 Refills Prov: Silviano Pittman MD 05/05/17 Ondansetron Odt (Zofran Odt) 4 Mg Tab 4 MG SL Q8HR Y for Nausea/Vomiting, #15 TAB 0 Refills Prov: Silviano Pittman MD 05/05/17 Disposition: 01 DISCHARGE HOME Condition: Stable Silviano Pittman MD May 05, 2017 19:41
[2017-05-05 21:07] LABS: BACTERIA, URINE FEW /hpf; BILIRUBIN, URINE MOD (NEG); BLOOD, URINE NEG (NEG); GLUCOSE,URINE NEG (NEG); KETONE, URINE 10 mg/dL (NEG); MUCUS URINE MANY /lpf (OCC); NITRITE,URINE NEG (NEG); PH, URINE 5.5 (5.0-8.5); SQUAMOUS EPITHELIAL CELL URINE 24 /hpf (0-5); URINE COLOR DARK-YELLOW (YELLW/STRAW); URINE LEUKOCYTE ESTERASE SMALL (NEG)
[2017-05-05] MEDS ORDERED: MACR100C2 PO (21:16)
[2017-05-05] MEDS ORDERED: NITROFURANTOIN MONOHYD MACROCR 100 MG CAP PO ONE (21:30)
== END 2017-05-05 21:41 | disposition home or self-care (01) ==
LOC: NEPD 17:34
DX: R11.2 Nausea with vomiting, unspecified (principal); R19.7 Diarrhea, unspecified; R10.13 Epigastric pain; N30.00 Acute cystitis without hematuria
CPT/HCPCS: 81001; 87086; 99284